=== PATIENT | male | born 1945 | race Caucasian/White ===

== ENCOUNTER 2023-12-07 11:06 | Day surgery (SDC) | payer MEDICARE, OTHER ==
[~2023-12-07] VITALS: Ht 175.3 cm; Wt 85.3 kg
[~2023-12-07 11:06] MED LIST: Balanced Salt Epinephrine Irrigation Solution 500 mL IR SCH; Lidocaine HCl/Pf 1% 5 ML VIAL XX SCH; Moxifloxacin HCL 0.5 MG/0.1 ML 0.4MLSYR RIGHTEYE SCH; NS 500 ML IV ONE; PHENYLEPHRINE\\TROPICAMIDE\\TETRACAINE OPHTHALMIC DILATING SOLN RIGHTEYE PRN; Povidone-Iodine 450 DROP/30 ML Solution ONE; Povidone-Iodine 450 DROP/30 ML Solution RIGHTEYE SCH; Tetracaine HCl/Pf 0.5% Opth Soln 4 ml ONE
[2023-12-07] MEDS ORDERED: Midazolam HCl 1MG / ML 2ML Vial ONE (12:32)
[2023-12-07] MEDS ORDERED: LISI20 PO (12:35)
[2023-12-07] MEDS ORDERED: NS 500 ML IV ONE (12:40)
--- NOTE | 2023-12-07 13:36 | NUR ---
12/07/23 1336 SANJIV GONSALEZ IV REMOVED. 200 LEFT TO COUNT
== END 2023-12-07 14:10 | disposition home or self-care (01) ==
LOC: ORSCSDS 11:06
PROVIDERS: Student in an Organized Health Care Education/Training Program
PROC: 08RJ3JZ Replacement of Right Lens with Synthetic Substitute, Percutaneous Approach (ICD-10-PCS; principal; 2023-12-07 13:00)
DX: H25.813 Combined forms of age-related cataract, bilateral (principal); I10 Essential (primary) hypertension; H18.519 Endothelial corneal dystrophy, unspecified eye; Z79.899 Other long term (current) drug therapy
CPT/HCPCS: J2250; J7040; V2632

== ENCOUNTER 2023-12-15 11:05 | Day surgery (SDC) | payer MEDICARE, OTHER ==
[~2023-12-15] VITALS: Ht 170.2 cm; Wt 85.5 kg
[~2023-12-15 11:05] MED LIST changes: +LISI20 PO; +Moxifloxacin HCL 0.5 MG/0.1 ML 0.4MLSYR LEFTEYE SCH; -Moxifloxacin HCL 0.5 MG/0.1 ML 0.4MLSYR RIGHTEYE SCH; +PHENYLEPHRINE\\TROPICAMIDE\\TETRACAINE OPHTHALMIC DILATING SOLN LEFTEYE PRN; -PHENYLEPHRINE\\TROPICAMIDE\\TETRACAINE OPHTHALMIC DILATING SOLN RIGHTEYE PRN; +Povidone-Iodine 450 DROP/30 ML Solution LEFTEYE SCH; -Povidone-Iodine 450 DROP/30 ML Solution RIGHTEYE SCH
[2023-12-15] MEDS ORDERED: FentaNYL Citrate 50 MCG/ML 2 ML Injection ONE (12:05)
[2023-12-15] MEDS ORDERED: Midazolam HCl 1MG / ML 2ML Vial ONE (12:06)
[2023-12-15] MEDS ORDERED: NS 1,000 ML IV ONE (12:25)
--- NOTE | 2023-12-15 13:44 | NUR ---
12/15/23 1033 Deepa Curtis PT DRANK APPLE JUICE WITHOUT ISSUE AMBULATED OUT
== END 2023-12-15 13:36 | disposition home or self-care (01) ==
LOC: ORSCSDS 11:05
PROVIDERS: Student in an Organized Health Care Education/Training Program
PROC: 08RK3JZ Replacement of Left Lens with Synthetic Substitute, Percutaneous Approach (ICD-10-PCS; principal; 2023-12-15 13:00)
DX: H25.812 Combined forms of age-related cataract, left eye (principal); Z96.1 Presence of intraocular lens; I10 Essential (primary) hypertension; Z87.891 Personal history of nicotine dependence; Z79.899 Other long term (current) drug therapy
CPT/HCPCS: J2250; J3010; J7040; V2632